=== PATIENT | male | born 1960 | race American Indian/Alaskan Native ===

== ENCOUNTER 2018-02-27 11:44 | Emergency (ER) | payer OTHER ==
[2018-02-27] MEDS ORDERED: KEPPRA 1,000 MG/NS 0.75% 100ML 1,000 MG/100 ML BAG IV ONE (12:09)
--- NOTE | 2018-02-27 12:13 | Emergency Department Report ---
HPI - General Chief Complaint: Seizure Time Seen by Provider: 02/27/18 12:08 - HPI HPI: Room 23 The patient is a 57-year-old male presented with a chief complaint of seizure. The patient's spouse states that the patient awakened this morning having a ge neralized tonic-clonic seizure. She states the seizure lasted approximately 10 minutes. The patient states he's been out of his Keppra for approximately one month. The patient states his last seizure before today was approximately one year ago. Patient currently denies complaints Location: [facility] Duration: [See above] Quality: Generalized tonic-clonic Severity: Moderate Modifying factors: [see above] Context: [see above] Mode of transportation: [not driving] ED Past Medical Hx - Past Medical History Previous Medical History?: Yes Hx of Cancer: Yes (prostate CA status post surgery 2010) Hx Seizures: Yes - Surgical History Past Surgical History?: No Additional Surgical History: Prostate surgery - Family History Family history: no significant - Social History Smoking Status: Current Some Day Smoker Substance Use Type: Alcohol - Medications Home Medications: Home Medications Medication Instructions Recorded Confirmed Last Taken Type levETIRAcetam [Keppra TAB] 500 mg PO BID #90 tablet 02/27/18 Unknown Rx ED Review of Systems ROS: Stated complaint: SIZURE Other details as noted in HPI Constitutional: no symptoms reported Eyes: denies: eye pain ENT: denies: throat pain Respiratory: no symptoms reported Cardiovascular: denies: chest pain Endocrine: no symptoms reported Gastrointestinal: denies: abdominal pain Genitourinary: denies: dysuria Musculoskeletal: denies: back pain Neurological: other (seizure). denies: headache Physical Exam - Physical Exam Vital Signs: Vital Signs 02/27/18 11:57 Temperature 98.9 F Pulse Rate 95 H Respiratory 16 Rate Blood Pressure 126/80 O2 Sat by Pulse 96 Oximetry Physical Exam: GENERAL: The patient is well-developed well-nourished male lying on stretcher not appearing to be in acute distress. [] HEENT: Normocephalic. Atraumatic. Extraocular motions are intact. Patient has moist mucous membranes. NECK: Supple. No meningitic signs are noted. Trachea midline CHEST/LUNGS: Clear to auscultation. There is no respiratory distress noted. HEART/CARDIOVASCULAR: Regular. There is no tachycardia. There is no gallop rub or murmur. ABDOMEN: Abdomen is soft, nontender. Patient has normal bowel sounds. There is no abdominal distention. SKIN: There is no rash. There is no edema. There is no diaphoresis. NEURO: The patient is awake, alert, and oriented. The patient is cooperative. The patient has no focal neurologic deficits. The patient has normal speech. Cranial nerves II through XII grossly intact, no drift MUSCULOSKELETAL: There is no evidence of acute injury. ED Course Vital Signs 02/27/18 11:57 Temperature 98.9 F Pulse Rate 95 H Respiratory 16 Rate Blood Pressure 126/80 O2 Sat by Pulse 96 Oximetry ED Medical Decision Making - Lab Data Result diagrams: 02/27/18 12:08 02/27/18 12:08 Laboratory Tests 02/27/18 02/27/18 02/27/18 12:08 12:08 12:13 WBC 3.6 L RBC 4.73 Hgb 13.7 Hct 42.2 MCV 89 MCH 29 MCHC 32 RDW 15.2 Plt Count 149 Sodium 141 Potassium 4.5 Chloride 104.6 Carbon Dioxide 20 L Anion Gap 21 BUN 10 Creatinine 1.5 Estimated GFR 58 BUN/Creatinine Ratio 7 Glucose 97 POC Glucose Calcium 8.8 Magnesium 2.40 H 02/27/18 12:40 WBC RBC Hgb Hct MCV MCH MCHC RDW Plt Count Sodium Potassium Chloride Carbon Dioxide Anion Gap BUN Creatinine Estimated GFR BUN/Creatinine Ratio Glucose POC Glucose 74 Calcium Magnesium - Differential Diagnosis seizure Critical care attestation.: If time is entered above; I have spent that time in minutes in the direct care of this critically ill patient, excluding procedure time. ED Disposition Clinical Impression: Seizure Disposition: DC-01 TO HOME OR SELFCARE Is pt being admited?: No Does the pt Need Aspirin: No Condition: Stable Instructions: Epilepsy (ED) Additional Instructions: Return to the emergency department immediately should you develop worsening symptoms, fever, inability to tolerate food or liquid or any other concerns. Prescriptions: levETIRAcetam [Keppra TAB] 500 mg PO BID #90 tablet Referrals: JAQUELIN ROBERTO MD [Staff Physician] - 3-5 Days (Dr Roberto is a neurologist. Please follow up with him to be established as a patient) [facility] [Outside] - 3-5 Days OZIEL BRANHAM MD [Staff Physician] - 3-5 Days (Dr Branham is a primary physician. Please follow up with him to be established as a patient) Time of Disposition: 12:46
[2018-02-27 12:32] LABS: Hematocrit 42.2 % (35.5-45.6); Hemoglobin 13.7 gm/dl (11.8-15.2); Mean Corpuscular HGB Conc 32 % (32-34); Mean Corpuscular Volume 89 fl (84-94); Platelet Count 149 K/mm3 (140-440); Red Blood Count 4.73 M/mm3 (3.65-5.03); Red Cell Distribution Width 15.2 % (13.2-15.2)
[2018-02-27 12:43] LABS: Calcium 8.8 mg/dL (8.4-10.2)
[2018-02-27 15:49] VITALS: BP 110/73
== END 2018-02-27 13:15 | disposition home or self-care (01) ==
LOC: ED 11:44
DX: R56.9 Unspecified convulsions (principal); F17.200 Nicotine dependence, unspecified, uncomplicated; Z85.46 Personal history of malignant neoplasm of prostate
CPT/HCPCS: 36415; 80048; 82962; 83735; 85027; 96374; 99284; J1953